=== PATIENT | male | born 1975 | race Asian ===

== ENCOUNTER 2020-09-05 15:41 | Emergency (ER) | payer MEDICAID ==
[~2020-09-05] VITALS: Ht 170.2 cm; Wt 77.3 kg
[2020-09-05 15:47] VITALS: BP 131/82
[2020-09-05] MEDS ORDERED: RISP2TAB45 PO (15:52)
[2020-09-05] MEDS ORDERED: FLUD25I IM (15:52)
[2020-09-05] MEDS ORDERED: [UNRECOGNIZED DRUG - OTHER] PO (15:52)
== END 2020-09-05 17:08 | disposition home or self-care (01) ==
LOC: EMS 15:41
DX: F31.9 Bipolar disorder, unspecified (principal); F20.9 Schizophrenia, unspecified; Z76.0 Encounter for issue of repeat prescription
CPT/HCPCS: 99281; Z7502

== ENCOUNTER 2020-10-07 08:29 | Emergency (ER) | payer MEDICAID ==
[~2020-10-07] VITALS: Ht 170.2 cm; Wt 81.8 kg
[~2020-10-07 08:29] MED LIST: FLUD25I IM; RISP2TAB45 PO; [UNRECOGNIZED DRUG - OTHER] PO
[2020-10-07 08:36] VITALS: BP 137/82
[2020-10-07] MEDS ORDERED: PERTUSS(ACELL),DIPH,TET VAC/PF 0.5 ML SYRINGE IM. ONE (09:15)
[2020-10-07] MEDS ORDERED: AMOX TR/POT CLAV 875 MG/125 MG TABLET PO ONE (09:15)
== END 2020-10-07 09:34 | disposition home or self-care (01) ==
LOC: EMS 08:33
DX: S61.452A Open bite of left hand, initial encounter (principal); F31.9 Bipolar disorder, unspecified; F20.9 Schizophrenia, unspecified; W54.0XXA Bitten by dog, initial encounter; Y93.89 Activity, other specified; Y92.89 Other specified places as the place of occurrence of the external cause; Y99.8 Other external cause status
CPT/HCPCS: 90471; 90715; 99283